=== PATIENT | female | born 1950 | race African-American/Black ===

== ENCOUNTER → 2017-08-01 | Day surgery (SDC) | payer MEDICARE ==
[2017-07-24 15:08] LABS: BASOPHILS % 0.8 % (0.0-1.0); EOSINOPHILS # (AUTO) 0.1 (0.0-0.4); EOSINOPHILS % 2.4 % (0.0-6.0); HEMATOCRIT 40.6 % (34.2-44.1); HEMOGLOBIN 13.3 g/dL (12.0-16.0); LYMPHOCYTES # (AUTO) 2.1 (1.0-3.2); LYMPHOCYTES % 39.2 % (18.0-39.1); MEAN CORPUSCULAR HEMOGLOBIN 28.7 pg (28-32); MEAN CORPUSCULAR HGB CONC 32.8 g/dL (31-35); MEAN CORPUSCULAR VOLUME 87.7 fL (81-99); MONOCYTES # (AUTO) 0.4 (0.2-0.8); MONOCYTES % 6.6 % (4.4-11.3); NEUTROPHILS # (AUTO) 2.7 (2.1-6.9); NEUTROPHILS % 50.8 % (38.7-80.0); PLATELET COUNT 176 x10e3/uL (140-360); RED BLOOD COUNT 4.63 x10e6/uL (3.6-5.1); RED CELL DISTRIBUTION WIDTH 12.7 % (11.7-14.4)
[~2017-08-01] MED LIST: ALPRAZOLAM0.25 MG PO; BYSTOLIC10 MG PO; DEXILANT60 MG PO; DEXTROSE 5%/LACTATED RINGERS 1,000 ML IV ONE; DICYCLOMINE HCL10 MG PO; FENTANYL CITRATE/PF 100MCG/2 ML INJ ONE; HYOSCYAMINE SULFATE 0.5 MG/ML AMP ONE; LISINOPRIL; METFORMIN HCL500 M3; METFORMIN HCL500 MG PO; MICARDIS40 MG PO; MIDAZOLAM HCL 2 MG/2 ML VIAL ONE; OMEPRAZOLE40 MG PO; PRAVASTATIN SOD40 MG PO; PROPOFOL IV EMULSION 10 MG/ML 50 ML VIAL ONE; RANITIDINE HCL150 MG PO; REGLAN; Z LORATADINE PO; Z.0.ASPIR 8181 MG PO; Z.0.ATENOLOL50 MG PO; Z.0.DEXILANT60 MG PO; Z.0.DIAZEPAM5 MG PO; Z.0.TRICOR145 MG PO
--- NOTE | 2017-08-01 13:31 | Operative Report ---
DATE OF PROCEDURE: August 01, 2017 REFERRING PHYSICIAN: Dr. Thang Oswald. PROCEDURE PERFORMED: 1. Esophagogastroduodenoscopy with esophageal dilatation and biopsies. 2. Colonoscopy with polypectomy. INDICATIONS FOR ESOPHAGOGASTRODUODENOSCOPY: Dysphagia to solids, excessive belching, bloating. INDICATIONS FOR COLONOSCOPY: Colorectal cancer screening. Personal history of colon cancer. MEDICATION: Patient was done under MAC. Please see anesthesiologist's note. PROCEDURE: With the patient in the left lateral decubitus position, the flexible fiberoptic Olympus gastroscope was introduced into the esophagus under direct visualization without any difficulty. There was some patchy erythema noted in the distal esophagus. A mild stricture was noted at the GE junction, and that was dilated to a size 52-Guyanese Goldsmith. The scope was then advanced with ease into the stomach. Mucosa overlying the antrum revealed some patchy erythema and mild to moderate edema, and biopsies were obtained and sent to stain for H. pylori. The mucosa overlying the body showed some prominent nodularity, and biopsies were obtained. The pylorus was of normal contour and shape, was intubated with ease, and the scope was advanced all the way to the 2nd portion of the duodenum. The scope was then withdrawn slowly. Mucosa overlying the proximal 2nd portion and the duodenal bulb appeared to be within normal limits. The scope was then withdrawn back into the stomach and retroflexed, and the mucosa overlying the fundus and the cardia appeared to be within normal limits. The scope was then straightened out. The stomach was decompressed. The scope was subsequently withdrawn. Patient tolerated the procedure well. IMPRESSION: 1. Distal esophagitis, mild. 2. Esophageal stricture at gastroesophageal junction dilated to size 52-Guyanese Goldsmith. 3. Gastritis biopsied. Biopsies sent to stain for H. pylori. PLAN: Follow up histology. Increase omeprazole to 40 mg 1 p.o. a.c. b.i.d. Patient was then turned around and after adequate lubrication of the anal canal, a flexible fiberoptic Olympus colonoscope was inserted into the rectum with ease and advanced all the way to the cecum. It was then withdrawn slowly. Mucosa overlying the cecum, ascending colon and transverse colon appeared to be within normal limits. One polyp was hot biopsied from the descending colon, and one polyp was hot biopsied from the sigmoid colon. The anastomosis was noted at approximately 10 cm from the anal verge, and it was intact without any evidence of recurrence. The rectal mucosa appeared to be within normal limits. The scope was then retroflexed into the distal rectum and small internal hemorrhoids were noted, none of which was actively bleeding. The scope was then straightened out. The rectosigmoid area as well as the distal rectal area were decompressed. The scope was subsequently withdrawn. Patient tolerated the procedure well. IMPRESSION: 1. Descending colon polyp hot biopsied. 2. Sigmoid colon polyp hot biopsied. 3. Anastomosis intact, no evidence of recurrence. 4. Internal hemorrhoids, none actively bleeding. PLAN: Follow up histology. Initiate high-fiber low-fat diet. Initiate high-fiber supplement. Patient will need a followup colonoscopy in 3 years. Job#: [id number] cc:THANG OSWALD MD
== END | disposition home or self-care (01) ==
LOC: OR 08:56
PROVIDERS: ATTEND Internal Medicine Gastroenterology
DX: Z12.11 Encounter for screening for malignant neoplasm of colon (principal); D12.5 Benign neoplasm of sigmoid colon; Z85.038 Personal history of other malignant neoplasm of large intestine; K29.50 Unspecified chronic gastritis without bleeding; K22.2 Esophageal obstruction; Z98.0 Intestinal bypass and anastomosis status; K20.9 Esophagitis, unspecified; K58.9 Irritable bowel syndrome, unspecified; K59.00 Constipation, unspecified; K64.8 Other hemorrhoids; E11.9 Type 2 diabetes mellitus without complications; I10 Essential (primary) hypertension; Z01.810 Encounter for preprocedural cardiovascular examination; Z01.812 Encounter for preprocedural laboratory examination; Z68.33 Body mass index [BMI] 33.0-33.9, adult; Z80.0 Family history of malignant neoplasm of digestive organs
CPT/HCPCS: 36415 ×2; 43239; 43450; 45384; 82948; 85025; 93005; J1980; J2250; J7120

== ENCOUNTER → 2017-09-11 | Outpatient (CLI) | payer MEDICARE ==
[~2017-09-11] MED LIST changes: -DEXTROSE 5%/LACTATED RINGERS 1,000 ML IV ONE; -FENTANYL CITRATE/PF 100MCG/2 ML INJ ONE; -HYOSCYAMINE SULFATE 0.5 MG/ML AMP ONE; -MIDAZOLAM HCL 2 MG/2 ML VIAL ONE; -PROPOFOL IV EMULSION 10 MG/ML 50 ML VIAL ONE
--- NOTE | 2017-09-11 11:05 | Diagnostic Imaging Report ---
PROCEDURE:MODIFIED BA. SWALLOW INDICATION:Dysphasia COMPARISON:None. TECHNIQUE:Routine modified barium swallow was performed in conjunction with speech pathology. There is viscosity of the barium and barium coated food items were administered. Fluoroscopy time: 1.2 minutes. Cumulative air kerma: 6.65 mGy FINDINGS: No evidence of penetration or aspiration. Moderate degenerative changes of the cervical spine with anterior osteophytosis and associated soft tissue thickening at C4-C5 and C5-C6. CONCLUSION: No evidence of aspiration. Dictated by: Delfino Hammer M.D. on 09/11/2017 at 11:13 Electronically approved by: Delfino Hammer M.D. on 09/11/2017 at 11:13
== END ==
LOC: DX 08:58
PROVIDERS: ATTEND Internal Medicine Gastroenterology
DX: R13.10 Dysphagia, unspecified (principal)
CPT/HCPCS: 74230; 92611; G8996; G8997; G8998

== ENCOUNTER → 2019-07-20 | Day surgery (SDC) | payer MEDICARE ==
[2019-07-19 11:31] LABS: BASOPHILS % 0.8 % (0.0-1.0); EOSINOPHILS # (AUTO) 0.1 (0.0-0.4); EOSINOPHILS % 3.3 % (0.0-6.0); HEMATOCRIT 40.9 % (34.2-44.1); HEMOGLOBIN 13.4 g/dL (12.0-16.0); LYMPHOCYTES # (AUTO) 1.5 (1.0-3.2); LYMPHOCYTES % 38.7 % (18.0-39.1); MEAN CORPUSCULAR HEMOGLOBIN 29.3 pg (28-32); MEAN CORPUSCULAR HGB CONC 32.8 g/dL (31-35); MEAN CORPUSCULAR VOLUME 89.5 fL (81-99); MONOCYTES # (AUTO) 0.2 (0.2-0.8); MONOCYTES % 5.8 % (4.4-11.3); NEUTROPHILS % 51.1 % (38.7-80.0); PLATELET COUNT 226 x10e3/uL (140-360); RED BLOOD COUNT 4.57 x10e6/uL (3.6-5.1); RED CELL DISTRIBUTION WIDTH 12.8 % (11.7-14.4)
[~2019-07-20] MED LIST changes: +AMLODIPINE BESYL5 MG PO; +FENTANYL CITRATE/PF 100MCG/2 ML INJ ONE; +HYOSCYAMINE 0.125 MG TAB ONE; +LIDOCAINE HCL 2% LOCAL INJ 5 ML SDV VIAL INJ ONE; +MIDAZOLAM HCL 2 MG/2 ML VIAL ONE; +PROPOFOL IV EMULSION 10 MG/ML 50 ML VIAL ONE
--- OUTSIDE RECORDS SUMMARY | 2019-07-20 12:07 | XMS REPORT | Encounter Summary ---
Author Organization Unknown Address [address] [place] [address] Phone [phone] Care Team Providers Care Cloud Security Architect Name Role Phone Dr. Mona Simmons 3 [phone] Reason for Visit sinus symptoms; dizziness Instructions 1. Diabetes mellitus 2. Dizziness urinalysis complete, reflex culture 3. Benign essential hypertension 4. Muscle spasms of head AND/OR neck 5. Allergic rhinitis azelastine 137 mcg (0.1 %) nasal spray aerosol 6. Body mass index 30+ - obesity body mass index: care instructions learning about healthy weight Discussion Note: None recorded. Plan of Care Patient Instructions Prescriptions were sent to your pharmacy today, please call if any issues labs ordered today- results should be back within the the next 7 days- check the patient portal stop metformin check blood sugar and blood pressure- take extra dose of lisinopril in the evening if >140/90 Reminders Provider Appointments Est Patient on or around 07/20/2019 Mona Simmons MD Lab Urinalysis Complete, Reflex Culture 04/19/2019 [facility] Referral None recorded. Procedures None recorded. Surgeries None recorded. Imaging None recorded. Medications Name Start Date alprazolam 0.25 mg tablet atorvastatin 10 mg tablet Take 1 tablet every day by oral route at bedtime. azelastine 137 mcg (0.1 %) nasal spray aerosol 1 SEN BID PRN clotrimazole-betamethasone 1 %-0.05 % topical cream APPLY TO THE AFFECTED AND SURROUNDING AREAS OF SKIN BY TOPICAL ROUTE 2 TIMES PER DAY IN THE MORNING AND EVENING FOR 2 WEEKS dicyclomine 10 mg tablet Take by oral route. fluoxetine 10 mg capsule Take 1 capsule every day by oral route for 90 days. lisinopril 10 mg tablet Take 1 tablet every day by oral route for 90 days. omeprazole 40 mg capsule,delayed release TAKE ONE CAPSULE BY MOUTH ONCE DAILY BEFORE A MEAL Patanol 0.1 % eye drops INSTILL 1 DROP INTO AFFECTED EYE(S) BY OPHTHALMIC ROUTE 2 TIMES PER DAY AT AN INTERVAL OF 6 TO 8 HOURS as needed Medications Administered None recorded. Vitals Height Weight BMI Blood Pressure 5 ft 4 in 195 lbs 33.5 kg/m2 (1) 135/82 mm[Hg] (2) 138/94 mm[Hg] (3) 142/92 mm[Hg] (4) 136/86 mm[Hg] Lab Results Date Name Specimen Result Interpretation Description Value Range Status Address 03/24/2019 Microalbumin:creatinine Ratio, Urine Microalbumin Random Urine 15 ug/mL Final [facility]: [address] Normal Creatinine Random Urine 262.4 mg/dL 20.0-320.0 mg/dL Final [facility]: [address] Normal Microalbumin/creatinine (Random Urine) Ratio Calculated 6 mcg/mg creat Final [facility]: [address] 03/24/2019 CMP, Serum or Plasma Alt 17 U/L 0-55 U/L Final [facility]: [address] Ast 17 U/L 5-34 U/L Final [facility]: [address] Low Bun 9.6 mg/dL 9.8-25.0 mg/dL Final [facility]: [address] Alk Phos 93 unit/L 40-150 unit/L Final [facility]: [address] Glucose 88 mg/dL 70-99 mg/dL Final [facility]: [address] Albumin 4.5 g/dL 3.4-5.1 g/dL Final [facility]: [address] Creatinine 0.79 mg/dL 0.57-1.11 mg/dL Final [facility]: [address] eGFR Non- >60 mL/min/1.73m2 Final [facility]: [address] Total Bilirubin 0.3 mg/dL 0.2-1.2 mg/dL Final [facility]: [address] eGFR - >60 mL/min/1.73m2 Final [facility]: [address] [place] [address], [place] Sodium 141 mEq/L 135-145 mEq/L Final [facility]: [address] [place] [address], [place] Potassium 3.7 mEq/L 3.5-5.1 mEq/L Final [facility]: [address] [place] [address], [place] Chloride 105 mmol/L 98-110 mmol/L Final [facility]: [address] [place] [address], [place] Total Protein 7.4 g/dL 6.1-8.2 g/dL Final [facility]: [address] [place] [address], [place] Calcium 9.4 mg/dL 8.6-10.4 mg/dL Final [facility]: [address] [place] [address], [place] Co2 29.2 mmol/L 20.0-32.0 mmol/L Final [facility]: [address] [place] [address], [place] Anion Gap 7 calc Final [facility]: [address] 03/24/2019 Lipid Panel, Serum Low Hdl 40 mg/dL Final [facility]: [address] High Triglyceride 189 mg/dL 0-150 mg/dL Final [facility]: [address] VLDL (Calculated) 38 mg/dL Final [facility]: [address] cholesterol/HDL Ratio 5.2 mg/dL Final [facility]: [address] High non-HDL Cholesterol (Calculated) 169 mg/dL 0-160 mg/dL Final [facility]: [address] High Cholesterol 209 mg/dL 0-200 mg/dL Final [facility]: [address] High LDL (Calculated) 131 mg/dL 0-130 mg/dL Final [facility]: [address] [place] [address], [place] 03/24/2019 HbA1C (Hemoglobin a1C), Blood High A1C W/eag 6.5 % 1.0-5.7 % Final [facility]: [address] Average Blood Glucose 140 mg/dL Final [facility]: [address] Allergies Code Code System Name Reaction Severity Status Onset 305870 RxNorm Prevnar 13 (Pf) Dizziness Active Sulfa (Sulfonamide Antibiotics) Itching Moderate Active Problems Name Status Onset Date Source Diabetes Mellitus Active 03/24/2019 Mixed Anxiety and Depressive Disorder Active 03/24/2019 Benign Essential Hypertension Active 03/24/2019 History of Malignant Neoplasm of Colon Active 03/24/2019 Mixed Hyperlipidemia Active 03/28/2019 Gastroesophageal Reflux Disease without Esophagitis Active 03/28/2019 Allergic Rhinitis Active 04/19/2019 Procedures Date Name Performed by 09/14/2009 ENT Surgery (Ear, Nose, Throat) Information not available 09/14/2007 Cancer Surgery Information not available 09/14/1949 Hysterectomy (Partial) Information not available 03/24/2019 MAMMO, Screening, Digital, Bilateral [facility] [id number] [place] [address] [place] [address] [phone] (Work Place) 03/24/2019 Bone Density [facility] - [address] [facility] [address] [place] [address] [phone] (Work Place) 04/04/2019 MAMMO, Diagnostic, Digital, Unilateral [facility] [address] [facility] [address] [place] [address] [phone] (Work Place) 04/14/2019 MAMMO, Diagnostic, Digital, Unilateral [facility] - [address] [place] [address] [phone] (Work Place) 04/14/2019 US, Breast, Unilateral [facility] - [address] [place] [address] [phone] (Work Place) Vaccine List Vaccine Type pneumococcal conjugate PCV 13 03/24/20190.5 mL Social History Tobacco Smoking Status Former Smoker (1 PPD) Past Encounters 04/19/2019 Diabetes Mellitus; Dizziness; Benign Essential Hypertension; Muscle Spasms of Head AND/OR Neck; Allergic Rhinitis; Body Mass Index 30+ - Obesity Mona Simmons MD: [address], [facility] [address], [place] [address], Ph. 04/01/2019 Diabetes Mellitus; Dizziness; Body Mass Index 30+ - Obesity; Adverse Reaction to Drug Mona Simmons MD: [address], [address], [place] [address], Ph. 03/24/2019 Advance Directive Discussed with Patient; Depression Screening Positive; Immunization Refused; Screening for Malignant Neoplasm of Breast; Screening for Malignant Neoplasm of Colon; Screening for Osteoporosis; Benign Essential Hypertension; Diabetes Mellitus; Body Mass Index 30+ - Obesity; Mixed Anxiety and Depressive Disorder; Immunization; Candidal Intertrigo; Allergic Conjunctivitis; History of Malignant Neoplasm of Colon Mona Simmons MD: [address], [address], [place] [address], Ph. History of Present Illness Note:68 with DM. HTN, anxiety/depression c/o mild dizziness, intermittently x a few weeks<div>at last appt, switched bystolic to lisinopril- BP slightly elevated today, but pt's home BP readings are 120/80's</div><div>also decreased metformin to 1 PO QD at last appt- FSG remain 110-120's (03/24/2019 A1c 6.5),< /div><div>fell asleep sitting upright the other night, now with bilat shoulder/neck pains R>L, no paresthesis/weakness</div><div>denies fever/dysuria</div><div>c/o nasal drainage/post nasal drainage, left ear burning/warm sensation radiating down to posterior throat a few days ago, right sided sinus pressure today... no relief with flonase</div> Review of Systems:ROS as noted in the HPI Review of Systems None recorded. Physical Exam Notes: General: well developed, well nourished, in no acute distress.

Head: normocephalic and atraumatic.

Eyes: PERRL/EOM intact, conjunctiva and sclera clear with out nystagmus.

Ears: TM's intact and clear with normal canals with grossly normal hearing.

Nose: turbinates mildly congested, no sinus TTP, no deformity, discharge, inflammation, or lesions.

Mouth: no deformity or lesions with good dentition.

Neck: no masses, thyromegaly, or abnormal cervical nodes.

Chest Wall: no deformities or masses noted.

Lungs: clear bilaterally to auscultation. nonlabored respiratory effort, no wheeze, rales or rhonchi

Heart: chest non-tender; regular rate and rhythm, S1, S2 without murmurs, rubs, or gallops

Abdomen: soft, nontender, nondistended, no masses, no hernia, no rebound, normoactive bowel sounds

Msk: (+) spasm and mild TTP bilateral trapezius, no deformity or scoliosis noted of thoracic or lumbar spine.

Pulses: pulses normal in all 4 extremities.

Extremities: no clubbing, cyanosis, edema, or deformity noted with normal full range of motion of all joints.

Neurologic: no focal deficits, cranial nerves II-XII grossly intact with normal sensation, reflexes, coordination, muscle strength and tone.

Skin: intact without lesions or rashes.

Lymph Nodes:no significant cervical, axillary or supraclavicular adenopathy.

Psych: alert and cooperative; normal mood and affect; normal attention span and concentration. No suicidal/homicidal ideations, no panic attacks
--- OUTSIDE RECORDS SUMMARY | 2019-07-20 12:07 | XMS REPORT | Encounter Summary ---
Author Organization Unknown Address [address] [place] [address] Phone [phone] Care Team Providers Care Air Traffic Controller Center Name Role Phone Dr. Mona Simmons 3 [phone] Reason for Visit sinus symptoms; dizziness Instructions 1. Diabetes mellitus 2. Dizziness culture, urine 3. Benign essential hypertension 4. Muscle spasms [...] or around 07/20/2019 Mona Simmons MD Lab Culture, Urine 04/19/2019 [facility] Referral None recorded. Procedures None recorded. [...] Urine Microalbumin Random Urine 15 ug/mL Final [facility]: [address] Normal Creatinine Random Urine 262.4 mg/dL 20.0-320.0 mg/dL Final [facility]: [address] Normal Microalbumin/creatinine (Random Urine) Ratio Calculated 6 mcg/mg creat Final [facility]: [address] 03/24/2019 CMP, Serum or Plasma Alt 17 U/L 0-55 U/L Final [facility]: [address] Ast 17 U/L 5-34 U/L Final [facility]: [address] Low Bun 9.6 mg/dL 9.8-25.0 mg/dL Final [facility]: [address] Alk Phos 93 unit/L 40-150 unit/L Final [facility]: [address] Glucose 88 mg/dL 70-99 mg/dL Final [facility]: [address] Albumin 4.5 g/dL 3.4-5.1 g/dL Final [facility]: [address] Creatinine 0.79 mg/dL 0.57-1.11 mg/dL Final [facility]: [address] eGFR Non- >60 mL/min/1.73m2 Final [facility]: [address] Total Bilirubin 0.3 mg/dL 0.2-1.2 mg/dL Final [facility]: [address] eGFR - >60 mL/min/1.73m2 Final [facility]: [address] [place] [address], [place] Sodium 141 mEq/L 135-145 mEq/L Final [facility]: [address] [place] [address], [place] Potassium 3.7 mEq/L 3.5-5.1 mEq/L Final [facility]: [address] [place] [address], [place] Chloride 105 mmol/L 98-110 mmol/L Final [facility]: [address] [place] [address], [place] Total Protein 7.4 g/dL 6.1-8.2 g/dL Final [facility]: [address] [place] [address], [place] Calcium 9.4 mg/dL 8.6-10.4 mg/dL Final [facility]: [address] [place] [address], [place] Co2 29.2 mmol/L 20.0-32.0 mmol/L Final [facility]: [address] [place] [address], [place] Anion Gap 7 calc Final [facility]: [address] [place] [address], [place] 03/24/2019 Lipid Panel, Serum Low Hdl 40 mg/dL Final [facility]: [address] High Triglyceride 189 mg/dL 0-150 mg/dL Final [facility]: [address] VLDL (Calculated) 38 mg/dL Final [facility]: [address] cholesterol/HDL Ratio 5.2 mg/dL Final [facility]: [address] High non-HDL Cholesterol (Calculated) 169 mg/dL 0-160 mg/dL Final [facility]: [address] High Cholesterol 209 mg/dL 0-200 mg/dL Final [facility]: [address] High LDL (Calculated) 131 mg/dL 0-130 mg/dL Final [facility]: [address] [place] [address], [place] 03/24/2019 HbA1C (Hemoglobin a1C), Blood High A1C W/eag 6.5 % 1.0-5.7 % Final [facility]: [address] Average Blood Glucose 140 mg/dL Final [facility]: [address] Allergies Code Code System Name Reaction Severity Status Onset 664109 RxNorm Prevnar 13 (Pf) Dizziness Active Sulfa [...] not available 03/24/2019 MAMMO, Screening, Digital, Bilateral [facility] [address] [place] [address] [place] [address] [phone] (Work Place) 03/24/2019 Bone Density [facility] - [address] [place] [address] [phone] (Work Place) 04/04/2019 MAMMO, Diagnostic, Digital, Unilateral [facility] - [address] [facility] [address] [place] [address] [phone] (Work Place) 04/14/2019 MAMMO, Diagnostic, Digital, Unilateral [facility] - [address] [place] [address] [phone] (Work Place) 04/14/2019 US, Breast, Unilateral [facility] - [address] [place] [address] [phone] (Work [address]) Vaccine List Vaccine Type pneumococcal conjugate PCV 13 03/24/20190.5 mL Social History Tobacco Smoking Status Former Smoker (1 PPD) Past Encounters 04/19/2019 Diabetes Mellitus; Dizziness; Benign Essential Hypertension; Muscle Spasms of Head AND/OR Neck; Allergic Rhinitis; Body Mass Index 30+ - Obesity Mona Simmons MD: [address], [facility] [address], [place] [address], Ph. 04/01/2019 Diabetes Mellitus; Dizziness; Body Mass Index 30+ - Obesity; Adverse Reaction to Drug Moan Simmons MD: [address], [address], [place] [address], Ph. 03/24/2019 Advance Directive Discussed with Patient; Depression Screening Positive; Immunization Refused; Screening for Malignant Neoplasm of Breast; Screening for Malignant Neoplasm of Colon; Screening for Osteoporosis; Benign Essential Hypertension; Diabetes Mellitus; Body Mass Index 30+ - Obesity; Mixed Anxiety and Depressive Disorder; Immunization; Candidal Intertrigo; Allergic Conjunctivitis; History of Malignant Neoplasm of Colon Mona Simmons MD: [address], [address], [place] [address], Ph. History of Present Illness Note:68 with [...]
--- OUTSIDE RECORDS SUMMARY | 2019-07-20 12:07 | XMS REPORT ---
Author Author [facility] Address Unknown Phone Unavailable Care Team Providers Care Information Clerk Name Role Phone GUICHO BEARD Unavailable Unavailable Problems This patient has no known problems. Allergies, Adverse Reactions, Alerts This patient has no known allergies or adverse reactions. Medications This patient has no known medications. Results Test Description Test Time Test Comments Text Results Atomic Results Result Comments MODIFIED BA. SWALLOW [place] [address] Patient Name: TIGRE GOULD MR #: [id number] : 1950 Age/Sex: 67/F Req #: [id number] [facility] Physician: Ordered by: GUICHO BEARD MD Report #: [id number] Location: DX Room/Bed: Procedure: [id number] DX/MODIFIED BA. SWALLOW Exam Date: 09/11/17 Exam Time: 1015 REPORT STATUS: Signed PROCEDURE: MODIFIED BA. SWALLOW INDICATION: Dysphasia COMPARISON: None. TECHNIQUE: Routine modified barium swallow was performed in conjunction with speech pathology. There is viscosity of the barium and barium coated food items were administered. Fluoroscopy time: 1.2 minutes. Cumulative air kerma: 6.65 mGy FINDINGS: No evidence of penetration or aspiration. Moderate degenerative changes of the cervical spine with anterior osteophytosis and associated soft tissue thickening at C4-C5 and C5-C6. CONCLUSION: No evidence of aspiration. Dictated by: Clay Hammer M.D. on 09/11/2017 at 11:13 Electronically approved by: Clay Hammer M.D. on 09/11/2017 at 11:13 Dictated By: CLAY HAMMER MD 1113 Transcribed By: SANDRA on 09/11/17 1113 COPY TO: GUICHO BEARD MD
--- OUTSIDE RECORDS SUMMARY | 2019-07-20 12:07 | XMS REPORT | Encounter Summary ---
Author Organization Unknown Address [address] [place] [address] Phone [phone] Care Team Providers Care Take Out Waiter Name Role Phone Dr. Mona Wade-Yung 3 [phone] Reason for Visit Annual Depression Screening; AWV Annual Wellness Visit Female (VFP); Advance Care Plan Instructions 1. Advance directive discussed with patient advance care planning: care instructions 2. Depression screening positive learning about depression learning about mood disorders 3. Immunization refused 4. Screening for malignant neoplasm of breast MAMMO, screening, digital, bilateral 5. Screening for malignant neoplasm of colon colonoscopy referral fecal occult blood, stool 6. Screening for osteoporosis bone density 7. Benign essential hypertension CMP, serum or plasma lisinopril 10 mg tablet 8. Diabetes mellitus metformin ER 500 mg tablet,extended release 24 hr HbA1c (hemoglobin A1c), blood lipid panel, serum microalbumin:creatinine ratio, urine diabetic ophthalmology referral 9. Body mass index 30+ - obesity learning about healthy weight body mass index: care instructions 10. Mixed anxiety and depressive disorder Prozac 10 mg capsule 11. Immunization Prevnar 13 (PF) 0.5 mL intramuscular syringe 12. Candidal intertrigo clotrimazole-betamethasone 1 %-0.05 % topical cream 13. Allergic conjunctivitis Patanol 0.1 % eye drops 14. History of malignant neoplasm of colon Discussion Note: None recorded. Plan of Care Patient Instructions It was good to see you in the office today for your Medicare Annual Wellness Visit. You have been provided some information on healthy nutrition, including a diet rich in fruits and vegetables, minimizing simple carbohydrates, salt, and saturated fats. I want to encourage regular cardiovascular exercise such as walking at least 30 minutes daily, 5 times per week. Please remember to schedule any preventive health measures that we talked about today. You have also been provided education on fall prevention and community- based lifestyle interventions to help reduce health risks and promote healthy living in your Annual Wellness folder. Screening Recommendations 1. Vaccines Pneumonia: Ordered Influenza: Next Fall 2. Mammography Screening: Ordered 3. Colorectal Cancer Screening: Colonoscopy (every 10 years) 4. Annual Depression Screening 5. Annual Alcohol Screening 6. Annual Fall Risk Screening 7. Annual Health Risk Assessment Patient Instructions on Filing Advance Directives Be sure that you have easy access to your paperwork for your medical power of attorney recruiter and advanced directives. Be sure that the designated person as well as important family members have copies of those forms as well. Please have contact information of your designee readily available. In the event of hospitalization, please bring those important documents with you for reference. Reminders Provider Appointments Est Patient on or around 06/24/2019 Mona Simmons MD Lab Fecal Occult Blood, Stool 03/24/2019 [facility] HbA1C (Hemoglobin a1C), Blood 03/24/2019 [facility] CMP, Serum or Plasma 03/24/2019 [facility] Lipid Panel, Serum 03/24/2019 [facility] Microalbumin:creatinine Ratio, Urine 03/24/2019 [facility] Referral Colonoscopy Referral 03/24/2019 Anne Acevedo MD Diabetic Ophthalmology Referral 03/24/2019 Diamond Roy MD Procedures None recorded. Surgeries None recorded. Imaging MAMMO, Screening, Digital, Bilateral 03/24/2019 [facility] Bone Density 03/24/2019 [facility] Medications Name Start Date alprazolam 0.25 mg tablet Bystolic 20 mg tablet Take 1 tablet every day by oral route. clotrimazole-betamethasone 1 %-0.05 % topical cream APPLY TO THE AFFECTED AND SURROUNDING AREAS OF SKIN BY TOPICAL ROUTE 2 TIMES PER DAY IN THE MORNING AND EVENING FOR 2 WEEKS dicyclomine 10 mg tablet Take by oral route. lisinopril 10 mg tablet Take 1 tablet every day by oral route for 90 days. metformin ER 500 mg tablet,extended release 24 hr Take 1 tablet twice a day by oral route with meals for 90 days. omeprazole 40 mg capsule,delayed release Take 1 capsule every day by oral route. Patanol 0.1 % eye drops INSTILL 1 DROP INTO AFFECTED EYE(S) BY OPHTHALMIC ROUTE 2 TIMES PER DAY AT AN INTERVAL OF 6 TO 8 HOURS as needed Prozac 10 mg capsule Take 1 capsule every day by oral route for 90 days. Medications Administered None recorded. Vitals Height Weight BMI Blood Pressure 5 ft 4 in 195.6 lbs 33.6 kg/m2 132/86 mm[Hg] Lab Results None recorded. Allergies Code Code System Name Reaction Severity Status Onset Sulfa (Sulfonamide Antibiotics) Itching Moderate Active Problems Name Status Onset Date Source Diabetes Mellitus Active 03/24/2019 Mixed Anxiety and Depressive Disorder Active 03/24/2019 Benign Essential Hypertension Active 03/24/2019 History of Malignant Neoplasm of Colon Active 03/24/2019 Procedures Date Name Performed by 09/14/2009 ENT Surgery (Ear, Nose, Throat) Information not available 09/14/2007 Cancer Surgery Information not available 09/14/1949 Hysterectomy (Partial) Information not available 03/24/2019 MAMMO, Screening, Digital, Bilateral [facility] [address] [place] [address] (Work Place) 03/24/2019 Bone Density [facility] [address] [place] [address] (Work Place) Vaccine List Vaccine Type pneumococcal conjugate PCV 13 03/24/20190.5 mL Social History Smoking Status Former Smoker (1 PPD) Past Encounters 03/24/2019 Advance Directive Discussed with Patient; Depression Screening Positive; Immunization Refused; Screening for Malignant Neoplasm of Breast; Screening for Malignant Neoplasm of Colon; Screening for Osteoporosis; Benign Essential Hypertension; Diabetes Mellitus; Body Mass Index 30+ - Obesity; Mixed Anxiety and Depressive Disorder; Immunization; Candidal Intertrigo; Allergic Conjunctivitis; History of Malignant Neoplasm of Colon Mona Simmons MD: [address], [address], [place] [address], Ph. History of Present Illness Mini Cog Reported By: Patient Functional Ability: Personal/Social/ Draw a clock and write in the numbers in the correct place, and set the time to 10 minutes after 11 o'clock was completed correctly? Yes, 3 word recall: Your nurse or doctor will ask you to remember 3 words. In 5 minutes, they will ask you to repeat them. Patient recalled 2 words Note:<div>68 yo female, new pt, for AWV, with many issues-</div><div>DM- not on statin, not checking FSG, takes metformin 1 PO BID, </div><div>feels well, takes med as prescribed, denies fatigue, visual blurring, polydipsia/polyuria, hypoglycemic episodes, paresthesias, eye exam >1 yr ago </div><div>HTN- on bystolic, takes a dose every 3-4 days... c/o cost, feels well, taking medication as prescribed, denies chest pain, palpitations, edema, orthopnea, headache, dizziness,</div><div>anxiety/depression- previously nightmares on sertraline, currently on alprazolam sporadically for nighttime anxiety, (+) occasional passive suicidal ideation, stressors- with chronic pain and depression... </div><div>c/o rash under abdominal pannus x a few months, intermittently, </div><div>c/o itchy eyes daily, watery, no matting/crusting< /div><div>
</div><div>mammogram > 2 yrs, needs orders
</div><div>DEXA & gt; 2 yrs, needs orders
LMP- postmenopausal
last eye >1 yr
last dental < 1 yr
last Tdap > 10 yrs, declines
prevnar -today
zostavax/shingrix- declines
flu vaccine- declines
exercise- sporadic walking
diet- careful- less red meat, more veggies/fish
Mvit- sporadic
domestic violence screen- neg
depression screen- (+) per above
colonoscopy- 2016- nl, hx colon ca and diverticulosis
living will- considering it
denies urinary incontinence, memory/hearing/balance/falls concerns
former smoker, no alcohol
</div><div>
</div>I'd like to talk about what is ahead with your illness and do some thinking in advance about what is important to you so I can make sure we provide you with the care you want-is that okay? {{Yes*|No}} Review of Systems:ROS as noted in the HPI Review of Systems None recorded. Physical Exam Notes: General: well developed, well nourished, in no acute distress. obese

Head: normocephalic and atraumatic.

Eyes: PERRL/EOM intact, conjunctiva and sclera clear with out nystagmus.

Ears: TM's intact and clear with normal canals with grossly normal hearing.

Nose: no deformity, discharge, inflammation, or lesions.

Mouth: [...] hernia, no rebound, normoactive bowel sounds

Msk: no deformity or scoliosis noted of thoracic or lumbar spine.

Pulses: pulses normal in all 4 extremities.

Extremities: no clubbing, cyanosis, edema, or deformity noted with normal full range of motion of all joints.

Neurologic: no focal deficits, cranial nerves II-XII grossly intact with normal sensation, reflexes, coordination, muscle strength and tone.

Skin: (+) 2-3 cm mildly macerated patch along skin folds of lower abd pannus with postinflammatory hyperpigmention, nontender, intact without lesions or rashes.

Lymph Nodes:no significant cervical, axillary or supraclavicular adenopathy.

Psych: alert and cooperative; normal mood and affect; normal attention span and concentration. No suicidal/homicidal ideations, no panic attacks"
--- OUTSIDE RECORDS SUMMARY | 2019-07-20 12:07 | XMS REPORT | Encounter Summary ---
Author Organization Unknown Address [address] [place] [address] Phone [phone] Care Team Providers Care Garbage Pick Up Worker Name Role Phone Dr. Mona Simmons 3 [phone] Balbir Jose 104 [phone] Ramsey Hidalgo MD 107 [phone] Reason for Visit chronic conditions Instructions 1. Cough 2. Hypertensive disorder Bystolic 5 mg tablet 3. Dizziness CT, head, w/o contrast 4. Acute sinusitis amoxicillin 875 mg-potassium clavulanate 125 mg tablet 5. Anxiety disorder clonazepam 0.5 mg tablet 6. Depressive disorder 7. Screening for cardiovascular system disease ankle brachial index - Peripheral Artery Disease Ratio ([employer]) 8. Screening for malignant neoplasm of colon colonoscopy procedure (PROC) 9. Body mass index 30+ - obesity Discussion Note: None recorded. Patient educational handouts: No information available. Plan of Care Patient Instructions RTC prn Reminders Provider Appointments Est Patient on or around 07/20/2019 Mona Simmons MD Lab None recorded. Referral None recorded. Procedures Colonoscopy Procedure (PROC) 06/13/[address] Surgeries [address] Imaging CT, Head, W/o Contrast 06/13/2019 [facility] Ankle Brachial Index 06/13/2019 [facility] Medications Name Start Date amoxicillin 875 mg-potassium clavulanate 125 mg tablet Take 1 tablet every 12 hours by oral route for 10 days. atorvastatin 10 mg tablet Take 1 tablet every day by oral route at bedtime. Bystolic 5 mg tablet Take 1 tablet every day by oral route. clonazepam 0.5 mg tablet Take 1 tablet as needed by oral route at bedtime. metformin ER 500 mg 24 hr tablet,extended release Take 1 tablet twice a day by oral route. omeprazole 40 mg capsule,delayed release TAKE ONE CAPSULE BY MOUTH ONCE DAILY BEFORE A MEAL Medications Administered None recorded. Vitals Height Weight BMI Blood Pressure 5 ft 4 in 195.4 lbs 33.5 kg/m2 140/82 mm[Hg] Lab Results None recorded. Allergies Code Code System Name Reaction Severity Status Onset 89678 RxNorm Lisinopril Cough Active 677698 RxNorm Prevnar 13 (Pf) Dizziness Active Sulfa (Sulfonamide Antibiotics) Itching Moderate Active Problems Name Status Onset Date Source Diabetes Mellitus Active 03/24/2019 Mixed Anxiety and Depressive Disorder Active 03/24/2019 Benign Essential Hypertension Active 03/24/2019 History of Malignant Neoplasm of Colon Active 03/24/2019 Mixed Hyperlipidemia Active 03/28/2019 Gastroesophageal Reflux Disease without Esophagitis Active 03/28/2019 Allergic Rhinitis Active 04/19/2019 Anxiety Disorder Active 06/13/2019 Hypertensive Disorder Active 06/13/2019 Urinary Incontinence Active 06/13/2019 Procedures Date Name Performed by 09/14/2009 ENT Surgery (Ear, Nose, Throat) Information not available 09/14/2007 Cancer Surgery Information not available 09/14/1949 Hysterectomy (Partial) Information not available 06/13/2019 CT, Head, W/o Contrast [facility] [address] [place] [address] (Work [address]) 06/13/2019 Ankle Brachial Index [facility] [address] [place] [address] (Work Place) Vaccine List Vaccine Type pneumococcal conjugate PCV 13 03/24/20190.5 mL Social History Tobacco Smoking Status Former Smoker (1 PPD) Past Encounters 06/13/2019 Cough; Hypertensive Disorder; Dizziness; Acute Sinusitis; Anxiety Disorder; Depressive Disorder; Screening for Cardiovascular System Disease; Screening for Malignant Neoplasm of Colon; Body Mass Index 30+ - Obesity Thomas Philip MD: [address], [address], [place] [address], Ph. History of Present Illness Note:<div>Dizzy - Pt has been sick and dizzy since getting Prevnar on 04/01. Not sure if related to all of the other medical problems. Some head pressure / CASAS. Itchy watery eyes. Rt max sinus pressure.
</div><div>
</div><div>HTN - Pt thinks Lisinopril is making Pt cough. Pt coughing so often that is making Pt urinate on self. Pt stopped Lisinopril lately. coughing is better.</div><div> Losartan - does not want to take</div><div>Bystolic - helped in past</div><div>< br></div><div>Anxiety - insurance not covering Xanax. Would like to try something else.</div> Review of Systems:ROS as noted in the HPI Review of Systems Comprehensive General Adult ROS Reported By: Patient Constitutional: Constitutional: no fever Eyes: Eyes: no vision change, no irritation ENMT: Ears: no difficulty hearing, no ear pain. Nose: no nose problems, no sinus problems. Mouth/Throat: no sore throat, no oral abnormalities Cardiovascular: Cardiovascular: no chest pain, no palpitations Respiratory: Respiratory: no cough, no wheezing, no shortness of breath Gastrointestinal: Gastrointestinal: no abdominal pain, no nausea, no vomiting, no constipation, normal appetite, no diarrhea, no GERD Genitourinary: Genitourinary: no difficulty urinating, no hematuria, no increased frequency Musculoskeletal: Musculoskeletal: no muscle aches Integumentary: Skin: no rashes Neurologic: Neurologic: no headaches Endocrine: Endocrine: no fatigue Hematologic/Lymphatic: Hematologic/Lymphatic no swollen glands Allergic/Immunologic: Allergy/Immunologic: no runny nose, no sinus pressure, no itching, no frequent sneezing Physical Exam General Adult Exam (male) Reported By: Patient Constitutional: General Appearance: healthy-appearing, well-nourished, well-developed. Level of Distress: NAD. Ambulation: ambulating normally Psychiatric: Insight: good judgement. Mental Status: anxious Head: Head: normocephalic, atraumatic Eyes: Lids and Conjunctivae: non-injected, no discharge, no pallor. Pupils: PERRLA. EOM: EOMI ENMT: Ears: no lesions on external ear, EACs clear, TMs clear. Hearing: no hearing loss. Nose: no lesions on external nose, nares patent, nasal passages clear, no sinus tenderness, no nasal discharge. Oropharynx: moist mucous membranes, no erythema, no exudates, tonsils not enlarged Neck: Neck: supple, trachea midline, no masses, FROM. Lymph Nodes: no cervical LAD, no supraclavicular LAD Lungs: Respiratory effort: no dyspnea. Auscultation: breath sounds normal, good air movement, CTA except as noted, no wheezing, no rales/crackles, no rhonchi Cardiovascular: Heart Auscultation: RRR, normal S1, normal S2, no murmurs, no rubs, no gallops Abdomen: Bowel Sounds: normal. Inspection and Palpation: soft, non-distended, no tenderness, no guarding, no masses. Liver: non-tender, no hepatomegaly. Spleen: non-tender, no splenomegaly Musculoskeletal:: Extremities: no edema Neurologic: Gait and Station: normal gait, normal station. Coordination and Cerebellum: ; below Notes: Some dizziness w/ sit / lie
--- OUTSIDE RECORDS SUMMARY | 2019-07-20 12:07 | XMS REPORT | Encounter Summary ---
Author Organization Unknown Address [address] [place] [address] Phone [phone] Care Team Providers Care Lining Marker Name Role Phone Dr. Mona Simmons 3 [phone] Reason for Visit dizziness Instructions 1. Diabetes mellitus 2. Dizziness 3. Body mass index 30+ - obesity body mass index: care instructions learning about healthy weight 4. Adverse reaction to drug Discussion Note: None recorded. Plan of Care Patient Instructions call with update next week eat small healthy snacks/meals throughout the day to maintain stable blood sugars Reminders Provider Appointments Est Patient on or around 06/24/2019 Mona Simmons MD Lab None recorded. Referral None recorded. Procedures None recorded. Surgeries None recorded. Imaging None recorded. Medications Name Start Date alprazolam 0.25 mg tablet atorvastatin 10 mg tablet Take 1 tablet every day by oral route at bedtime. Bystolic 20 mg tablet Take 1 tablet [...] BMI Blood Pressure 5 ft 4 in 194.8 lbs 33.4 kg/m2 136/84 mm[Hg] Lab Results Date Name Specimen Result Interpretation Description Value Range Status Address 03/24/2019 Microalbumin:creatinine Ratio, Urine Microalbumin Random Urine 15 ug/mL [facility]: [address] Normal Creatinine Random Urine 262.4 mg/dL 20.0-320.0 mg/dL [facility]: [address] Normal Microalbumin/creatinine (Random Urine) Ratio Calculated 6 mcg/mg creat [facility]: [address] [place] [address] 03/24/2019 CMP, Serum or Plasma Alt 17 U/L 0-55 U/L [facility]: [address] Ast 17 U/L 5-34 U/L [facility]: [address] Low Bun 9.6 mg/dL 9.8-25.0 mg/dL [facility]: [address] Alk Phos 93 unit/L 40-150 unit/L [facility]: [address] Glucose 88 mg/dL 70-99 mg/dL [facility]: [address] Albumin 4.5 g/dL 3.4-5.1 g/dL [facility]: [address] Creatinine 0.79 mg/dL 0.57-1.11 mg/dL [facility]: [address] eGFR Non- >60 mL/min/1.73m2 [facility]: [address] Total Bilirubin 0.3 mg/dL 0.2-1.2 mg/dL [facility]: [address] eGFR - >60 mL/min/1.73m2 [facility]: [address] Sodium 141 mEq/L 135-145 mEq/L [facility]: [address] Potassium 3.7 mEq/L 3.5-5.1 mEq/L [facility]: [address] Chloride 105 mmol/L 98-110 mmol/L [facility]: [address] Total Protein 7.4 g/dL 6.1-8.2 g/dL [facility]: [address], [place] Calcium 9.4 mg/dL 8.6-10.4 mg/dL [facility]: [address], [place] Co2 29.2 mmol/L 20.0-32.0 mmol/L [facility]: [address] [place] [address], [place] Anion Gap [address] [facility]: [address] [place] [address], [place] 03/24/2019 Lipid Panel, Serum Low Hdl 40 mg/dL [facility]: [address] [place] [address], [place] High Triglyceride 189 mg/dL 0-150 mg/dL [facility]: [address] VLDL (Calculated) 38 mg/dL [facility]: [address] [place] [address] cholesterol/HDL Ratio 5.2 mg/dL [facility]: [address] High non-HDL Cholesterol (Calculated) 169 mg/dL 0-160 mg/dL [facility]: [address] High Cholesterol 209 mg/dL 0-200 mg/dL [facility]: [address] High LDL (Calculated) 131 mg/dL 0-130 mg/dL [facility]: [address] [place] [address], [place] 03/24/2019 HbA1C (Hemoglobin a1C), Blood High A1C W/eag 6.5 % 1.0-5.7 % [facility]: [address] Average Blood Glucose 140 mg/dL [facility]: [address] [place] [address], [place] Allergies Code Code System Name Reaction Severity Status Onset 483110 RxNorm Prevnar 13 (Pf) Dizziness Active Sulfa (Sulfonamide Antibiotics) Itching Moderate Active Problems Name Status Onset Date Source Diabetes Mellitus Active 03/24/2019 Mixed Anxiety and Depressive Disorder Active 03/24/2019 Benign Essential Hypertension Active 03/24/2019 History of Malignant Neoplasm of Colon Active 03/24/2019 Mixed Hyperlipidemia Active 03/28/2019 Gastroesophageal Reflux Disease without Esophagitis Active 03/28/2019 Procedures Date Name Performed by 09/14/2009 ENT Surgery (Ear, Nose, Throat) Information not available 09/14/2007 Cancer Surgery Information not available 09/14/1949 Hysterectomy (Partial) Information not available 03/24/2019 MAMMO, Screening, Digital, Bilateral [facility] [address] [facility] [address] [place], [place] [address] (Work Place) 03/24/2019 Bone Density [facility] [address] [facility] [address] [place] [address] (Work [address]) Vaccine List Vaccine Type pneumococcal conjugate PCV 13 03/24/20190.5 mL Social History Smoking Status Former Smoker (1 PPD) Past Encounters 04/01/2019 Diabetes Mellitus; Dizziness; Body Mass Index 30+ - Obesity; Adverse Reaction to Drug Mona Simmons MD: [address] [place] [address], [facility] [address], [place] [address], Ph. 03/24/2019 Advance Directive Discussed with Patient; Depression Screening Positive; Immunization Refused; Screening for Malignant Neoplasm of Breast; Screening for Malignant Neoplasm of Colon; Screening for Osteoporosis; Benign Essential Hypertension; Diabetes Mellitus; Body Mass Index 30+ - Obesity; Mixed Anxiety and Depressive Disorder; Immunization; Candidal Intertrigo; Allergic Conjunctivitis; History of Malignant Neoplasm of Colon Mona Simmons MD: [address], [facility] [address], [place] [address], Ph. History of Present Illness Note:68 yo female with DM. HTN, anxiety/depression c/o left arm pain, fatigue dizziness following prevmar 13 injection 8 days ago, denies fever/redness at injection site<div>A1c 6.5 FSG 88, takes metformin twice daily, did not eat today yet, feels slightly dizzy currently</div><div>denies cough, dysuria, diarrhea</div> Review of Systems:ROS as noted in the HPI Review of Systems None recorded. Physical Exam Notes: General: well developed, well nourished, in no acute distress.

Head: normocephalic and atraumatic.

Eyes: PERRL/EOM intact, conjunctiva and sclera clear with out nystagmus.

Ears: grossly normal hearing.

Nose: no deformity, discharge, [...] pulses normal in all 4 extremities.

Extremities: (+) mild TTP prox LUE near axilla, no tenderness/redness/swelling at left deltoid injection site. no clubbing, cyanosis, edema, or deformity noted with normal full range of motion of all joints.

Neurologic: no focal deficits, cranial nerves II-XII grossly intact with normal sensation, reflexes, coordination, muscle strength and tone.

Skin: intact without lesions or rashes.

Lymph Nodes:no significant cervical, axillary or supraclavicular adenopathy.

Psych: a lert and cooperative; normal mood and affect; normal attention span and concentration. No suicidal/homicidal ideations, no panic attacks
[2019-07-20 16:58] VITALS: BP 129/80
--- NOTE | 2019-07-21 00:08 | Operative Report ---
DATE OF PROCEDURE: 07/20/2019 SURGEON: Ramsey Hidalgo MD PROCEDURE: Colonoscopy with polypectomy. INDICATION FOR COLONOSCOPY: Surveillance colonoscopy, personal history of colon cancer. MEDICATIONS: The patient was done under MAC. Please see anesthesiologist's note. PROCEDURE IN DETAIL: With the patient in left lateral decubitus position, the flexible fiberoptic Olympus colonoscope was inserted into the rectum with ease and advanced all the way to the cecum. It was then withdrawn slowly. Mucosa overlying the cecum, ascending colon, transverse colon, and descending colon appeared to be within normal limits. One approximately 5 mm sessile polyp was removed per snare electrocautery from the sigmoid colon. Anastomosis at the proximal rectum was intact and there was no evidence of recurrence. The scope was then retroflexed into the distal rectum and small internal hemorrhoids were noted, none of which was actively bleeding. The scope was then straightened out, it was subsequently withdrawn, the patient tolerated the procedure well. IMPRESSION: 1. Sigmoid colon polyp hot snared. 2. Anastomosis, rectum, intact. No evidence of recurrence. 3. Internal hemorrhoids, none actively bleeding. PLAN: Follow up histology. The patient might benefit from a followup colonoscopy in 3 to 5 years. Ramsey Hidalgo MD [facility] [place] /[id number] cc: Sarmad Mckeon MD
== END | disposition home or self-care (01) ==
LOC: OR 12:04
PROVIDERS: ATTEND Internal Medicine Gastroenterology
DX: Z12.11 Encounter for screening for malignant neoplasm of colon (principal); D12.5 Benign neoplasm of sigmoid colon; K64.8 Other hemorrhoids; K63.89 Other specified diseases of intestine; Z86.010 Personal history of colon polyps; Z80.0 Family history of malignant neoplasm of digestive organs; Z88.2 Allergy status to sulfonamides; E11.9 Type 2 diabetes mellitus without complications; K21.9 Gastro-esophageal reflux disease without esophagitis; I10 Essential (primary) hypertension; F41.9 Anxiety disorder, unspecified; E78.00 Pure hypercholesterolemia, unspecified; K44.9 Diaphragmatic hernia without obstruction or gangrene; K29.70 Gastritis, unspecified, without bleeding; K20.9 Esophagitis, unspecified; Z68.32 Body mass index [BMI] 32.0-32.9, adult; Z85.038 Personal history of other malignant neoplasm of large intestine; Z79.84 Long term (current) use of oral hypoglycemic drugs
CPT/HCPCS: 36415; 45385; 85025; 88305; 93005; J2001; J2250; J2704; J3010; 45378; 45384

== ENCOUNTER → 2021-10-17 | Day surgery (SDC) | payer MEDICARE, OTHER ==
[2021-10-15 13:47] LABS: BASOPHILS % 0.7 % (0.0-1.0); EOSINOPHILS # (AUTO) 0.1 (0.0-0.4); EOSINOPHILS % 2.2 % (0.0-6.0); HEMATOCRIT 41.4 % (34.2-44.1); LYMPHOCYTES % 34.2 % (18.0-39.1); MEAN CORPUSCULAR HEMOGLOBIN 28.4 pg (28-32); MEAN CORPUSCULAR HGB CONC 31.4 g/dL (31-35); MEAN CORPUSCULAR VOLUME 90.6 fL (81-99); MONOCYTES # (AUTO) 0.3 (0.2-0.8); MONOCYTES % 5.3 % (4.4-11.3); NEUTROPHILS # (AUTO) 3.4 (2.1-6.9); NEUTROPHILS % 57.4 % (38.7-80.0); PLATELET COUNT 200 x10e3/uL (140-360); RED BLOOD COUNT 4.57 x10e6/uL (3.6-5.1); RED CELL DISTRIBUTION WIDTH 13.1 % (11.7-14.4)
[~2021-10-17] MED LIST changes: +CRESTOR10 MG PO; +FEXOFENADINE H180 MG PO; +FLUOXETINE HCL10 MG PO; +GLUCAGON FOR INJ 1 MG VIAL ONE; -HYOSCYAMINE 0.125 MG TAB ONE; +HYOSCYAMINE SULFATE 0.5 MG/ML INJ ONE; +MONTELUKAST SOD10 MG PO; +PROPOFOL IV EMULSION 10 MG/ML 20 ML VIAL ONE; -PROPOFOL IV EMULSION 10 MG/ML 50 ML VIAL ONE; +VITAMIN D350 MCG PO
[2021-10-17 15:13] VITALS: BP 116/77
== END | disposition home or self-care (01) ==
LOC: OR 11:47
PROVIDERS: ATTEND Internal Medicine Gastroenterology
DX: Z12.11 Encounter for screening for malignant neoplasm of colon (principal); K63.5 Polyp of colon; Z85.038 Personal history of other malignant neoplasm of large intestine; K57.30 Diverticulosis of large intestine without perforation or abscess without bleeding; Z98.0 Intestinal bypass and anastomosis status; K64.8 Other hemorrhoids; K21.9 Gastro-esophageal reflux disease without esophagitis; Z71.3 Dietary counseling and surveillance; E11.9 Type 2 diabetes mellitus without complications; I10 Essential (primary) hypertension; E78.00 Pure hypercholesterolemia, unspecified; F41.9 Anxiety disorder, unspecified; Z88.2 Allergy status to sulfonamides; Z01.810 Encounter for preprocedural cardiovascular examination; Z01.812 Encounter for preprocedural laboratory examination; Z20.822 Contact with and (suspected) exposure to COVID-19; Z79.84 Long term (current) use of oral hypoglycemic drugs; Z79.899 Other long term (current) drug therapy; Z90.49 Acquired absence of other specified parts of digestive tract; Z68.32 Body mass index [BMI] 32.0-32.9, adult; Z87.891 Personal history of nicotine dependence; Z80.0 Family history of malignant neoplasm of digestive organs
CPT/HCPCS: 36415 ×2; 45380; 82948; 85025; 88305; 93005; J1610; J1980; J2001; J2704; U0002; 45378

== ENCOUNTER → 2024-12-08 | Day surgery (SDC) | payer MEDICARE, OTHER ==
[2024-12-06 13:12] LABS: BASOPHILS % 0.5 % (0.0-1.0); EOSINOPHILS # (AUTO) 0.1 (0.0-0.4); EOSINOPHILS % 1.9 % (0.0-6.0); HEMATOCRIT 39.7 % (34.2-44.1); HEMOGLOBIN 12.4 g/dL (12.0-16.0); LYMPHOCYTES # (AUTO) 1.8 (1.0-3.2); LYMPHOCYTES % 29.2 % (18.0-39.1); MEAN CORPUSCULAR HEMOGLOBIN 28.7 pg (28-32); MEAN CORPUSCULAR HGB CONC 31.2 g/dL (31-35); MEAN CORPUSCULAR VOLUME 91.9 fL (81-99); MONOCYTES # (AUTO) 0.4 (0.2-0.8); MONOCYTES % 5.9 % (4.4-11.3); NEUTROPHILS # (AUTO) 3.9 (2.1-6.9); NEUTROPHILS % 62.2 % (38.7-80.0); PLATELET COUNT 182 x10e3/uL (140-360); RED BLOOD COUNT 4.32 x10e6/uL (3.6-5.1); RED CELL DISTRIBUTION WIDTH 13.4 % (11.7-14.4); WHITE BLOOD COUNT 6.26 x10e3/uL (4.8-10.8)
[~2024-12-08] MED LIST changes: +DEXAMETHASONE SOD PHOS INJ 4 MG/ML SDV ONE; +DEXTROSE 5% 250ML 250 ML IV ONE; +EPHEDRINE SULFATE INJ 50 MG/ML VIAL ONE; -FENTANYL CITRATE/PF 100MCG/2 ML INJ ONE; -GLUCAGON FOR INJ 1 MG VIAL ONE; +GLYCOPYRROLATE INJ 0.2 MG/ML VIAL ONE; -HYOSCYAMINE SULFATE 0.5 MG/ML INJ ONE; -LIDOCAINE HCL 2% LOCAL INJ 5 ML SDV VIAL INJ ONE; +LOSARTAN POTASS25 MG PO; +METOCLOPRAMIDE HCL 10 MG/2ML VIAL ONE; +ONDANSETRON HCL INJ 2MG/ML 2ML 2 MG/ML VIAL ONE
[2024-12-08] MEDS: LACTATED RINGER'S 1,000 ML ONE (15:32)
[2024-12-08 19:18] VITALS: BP 139/71; PULSE 89; RESP 18; O2SAT 95
== END | disposition home or self-care (01) ==
LOC: OR 14:48
PROVIDERS: ATTEND Internal Medicine Gastroenterology
DX: Z12.11 Encounter for screening for malignant neoplasm of colon (principal); D12.5 Benign neoplasm of sigmoid colon; Z85.038 Personal history of other malignant neoplasm of large intestine; K58.9 Irritable bowel syndrome, unspecified; K57.30 Diverticulosis of large intestine without perforation or abscess without bleeding; Z98.0 Intestinal bypass and anastomosis status; K64.8 Other hemorrhoids; K44.9 Diaphragmatic hernia without obstruction or gangrene; E11.9 Type 2 diabetes mellitus without complications; I10 Essential (primary) hypertension; Z71.89 Other specified counseling; E78.5 Hyperlipidemia, unspecified; E66.01 Morbid (severe) obesity due to excess calories; F41.9 Anxiety disorder, unspecified; Z88.2 Allergy status to sulfonamides; Z01.810 Encounter for preprocedural cardiovascular examination; Z01.812 Encounter for preprocedural laboratory examination; Z79.84 Long term (current) use of oral hypoglycemic drugs; Z79.899 Other long term (current) drug therapy; Z68.31 Body mass index [BMI] 31.0-31.9, adult; Z71.3 Dietary counseling and surveillance; Z80.0 Family history of malignant neoplasm of digestive organs
CPT/HCPCS: 36415 ×2; 45380; 45385; 82948; 85025; 93005; J1100; J2250; J2405; J2704; J2765; J7121; 45378